=== PATIENT | male | born 1985 | race Caucasian/White ===

== ENCOUNTER 2020-01-07 04:14 | Emergency (ER) | payer MEDICAID ==
[~2020-01-07] VITALS: Ht 177.8 cm; Wt 144.0 kg
[~2020-01-07 04:14] MED LIST: FOLI-17 PO; HYDR-826 PO; MAGN400T50 PO; PHOS250T3 PO; POTA20TA6 PO; THIA100T67 PO; TRAZ-175 PO; VENL150C PO
[2020-01-07] MEDS ORDERED: OXYcodone/APAP 7.5/325MG TABLET ONE (06:57)
--- NOTE | 2020-01-07 06:59 | NUR ---
GOLDIE RN: DUE TO NO ROOMS AVAILABLE, PT IN TRIAGE 2, MEDICATED FOR LEG PAIN WITH PERCOCET PO, PT TOLERATED WELL. PT STATES PAIN IS 10/10
[2020-01-07] MEDS ORDERED: OXYcodone/APAP 7.5/325MG TABLET PO ONE (07:00)
[2020-01-07 07:44] VITALS: BP 165/70
--- NOTE | 2020-01-07 07:44 | NUR ---
Patient/Caregiver given discharge instructions and they have confirmed that they understand the instructions. Patient ambulatory with steady gait.
== END 2020-01-07 07:46 | disposition home or self-care (01) ==
LOC: ED 07:40
DX: M25.571 Pain in right ankle and joints of right foot (principal); M25.562 Pain in left knee; X50.0XXA Overexertion from strenuous movement or load, initial encounter; Y93.89 Activity, other specified; Y92.89 Other specified places as the place of occurrence of the external cause; Y99.8 Other external cause status
CPT/HCPCS: 29505; 99283; 99284